=== PATIENT | male | born 1990 | race Hispanic/Latino ===

== ENCOUNTER 2017-12-01 08:55 | Emergency (ER) | payer OTHER ==
[2017-12-01] MEDS: PERCOCET 5MG/325MG TAB PO (09:35)
== END 2017-12-01 10:18 | disposition home or self-care (01) ==
LOC: M ED 08:55
DX: S40.012A Contusion of left shoulder, initial encounter (principal); W00.0XXA Fall on same level due to ice and snow, initial encounter; Y92.59 Other trade areas as the place of occurrence of the external cause; Y99.0 Civilian activity done for income or pay; Z91.013 Allergy to seafood
CPT/HCPCS: 73030